=== PATIENT | female | born 1945 | race Caucasian/White ===

== ENCOUNTER 2016-08-19 11:47 | Emergency (ER) | payer OTHER, SELFPAY ==
[~2016-08-19 11:47] MED LIST: CALTRA600D PO; CLARIT10 PO; LEVOTHYROXIN100 MCG PO; MULTIPLE VIT PO; POTASSIUM PO; VITAMIN D31000 UNIT PO
[2016-08-19 12:25] LABS: BASOPHILS 0.1 %; BASOPHILS ABSOLUTE 0.01 10/3/uL (0.0-0.16); EOSINOPHILS 0.4 %; EOSINOPHILS ABSOLUTE 0.03 10/3/uL (0.0-0.53); HEMATOCRIT 38.4 % (36.0-48.0); IMMATURE GRANULOCYTES 0.1 %; IMMATURE GRANULOCYTES ABSOLUTE 0.01 10/3/uL (0.0-0.11); LYMPHOCYTES 9.7 %; LYMPHOCYTES ABSOLUTE 0.81 10/3/uL (0.67-4.30); MEAN CORPUS HGB CONC 33.9 g/dL (32.0-36.0); MEAN CORPUSCULAR HEMOGLOB 29.2 pg (26.0-34.0); MEAN PLATELET VOLUME 9.2 fL (9.2-13.0); MONOCYTES 1.8 %; MONOCYTES ABSOLUTE 0.15 10/3/uL (0.21-1.20); NEUTROPHILS 87.9 %; NEUTROPHILS ABSOLUTE 7.35 10/3/uL (2.02-8.40); PLATELET COUNT 284 10/3/uL (150-400); RBC DISTRIBUTION WIDTH 14.1 % (12.0-16.0); RED CELL COUNT 4.45 10/6/uL (4.0-5.6); WHITE BLOOD CELLS 8.4 10/3/uL (4.5-10.5)
[2016-08-19 12:26] LABS: MANUAL DIFF NO %; MEAN CORPUSCULAR VOLUME 86.3 fL (80-100)
[2016-08-19 12:38] LABS: CALCIUM, SERUM 8.2 MG/DL (8.5-10.4); CHLORIDE, SERUM 95 MMOL/L (96-112); CO2 (CARBON DIOXIDE) 31 MMOL/L (24-34); CREATININE 1.06 MG/DL (0.55-1.02); GFR AFRICAN AMERICAN 60 ML/MIN (>=60); GFR NON AFRICAN AMERICAN 52 ML/MIN (>=60); GLUCOSE, SERUM 98 MG/DL (60-99); POTASSIUM, SERUM 3.8 MMOL/L (3.5-5.3); SGPT(ALT) 18 U/L (5-65); SODIUM, SERUM 135 MMOL/L (135-148); TOTAL BILIRUBIN 0.6 MG/DL (0-1.2); TOTAL PROTEIN 6.6 G/DL (6.0-8.5)
[2016-08-19 12:41] LABS: A/G RATIO 0.6 (0.7-1.9); ALBUMIN 2.4 G/DL (3.5-5.0); ALKALINE PHOSPHATASE 88 U/L (45-117); BUN (BLOOD UREA NITROGEN) 18 MG/DL (6-23); GLOBULIN 4.2 G/DL (2.5-4.1); SGOT(AST) 23 U/L (5-40)
[2016-10-02] MEDS ORDERED: ACET500CAP PO (11:27)
== END 2016-08-19 16:05 | disposition home or self-care (01) ==
LOC: ER 11:47
PROVIDERS: Emergency Medicine
DX: E86.0 Dehydration (principal); I95.9 Hypotension, unspecified; C34.90 Malignant neoplasm of unspecified part of unspecified bronchus or lung; Z87.891 Personal history of nicotine dependence; Z88.1 Allergy status to other antibiotic agents; Z91.013 Allergy to seafood; Z79.899 Other long term (current) drug therapy
CPT/HCPCS: 80053; 85025; 93005; 99285

== ENCOUNTER 2016-09-08 21:33 | Observation (INO) | payer OTHER, SELFPAY ==
--- NOTE | ~2016-09-08 | HP ---
History And Physical [address] [place]. [address] NAME: TERESITA PARSONS : 41 STATUS : ADM Farheen PAT#: [id number] AGE: 71 ADM/REG DATE : 09/08/16 MR#: [id number] REPORT SERV DATE: 09/09/16 DICTATED BY: JUNAID SCHAEFER DATE: 09/08/16 REPORT STATUS : Draft TRANSCRIBED BY: GAYATRI DATE: 09/08/16 DATE OF ADMISSION: 09/08/2016 CHIEF COMPLAINT: A 71-year-old female presenting with recent chemotherapy treatments for lung cancer and now recurrent dehydration. HISTORY OF PRESENT ILLNESS: The patient's history was obtained through careful interview with the patient and daughter coupled with review of [facility] and [facility] medical records. The patient was diagnosed with adenocarcinoma of the lung in 2015, has undergone surgical resection of the left upper lung and now has been on chemotherapy under the care of Dr. Champagne. Last treatment was completed on the Sunday earlier this week. The plan is for the patient to undergo radiation therapy in September [address] Drew, but she has had difficulty with chemotherapy, particularly presenting with recurrent dehydration. Even this last week, she had to present with acute kidney injury and IV fluid resuscitation in the outpatient setting, but despite this, she has still felt ill and dehydrated. She describes orthostatic like symptoms, mild dizziness. She feels weak and "sits around all day." No nausea or vomiting. She claims she has a good appetite, all things considered. She has occasional diarrhea, but not too severe. She admits to an intermittent cough that is nonproductive, but no shortness of breath. She has an intermittent headache, very mild, 3/10 severity which is resolved by the time of evaluation. No chest pain. No abdominal pain. No back pain. She has had clear drainage from her sinuses. No fevers or chills. REVIEW OF SYSTEMS: Otherwise, a 14-point review of systems was obtained and was negative. PAST MEDICAL HISTORY: 1. Lung cancer as mentioned in the HPI. 2. Depression. 3. Breast cancer in 2000, status post radiation, but no chemotherapy. 4. Hypertension. 5. Hypothyroidism. 6. Abnormalities of the right parotid gland and an inguinal lymph node on PET scan with workup still pending. History And Physical [address] [place]. [address] NAME: TERESITA PARSONS : 41 STATUS : ADM Farheen PAT#: [id number] AGE: 71 ADM/REG DATE : 09/08/16 MR#: [id number] REPORT SERV DATE: 09/09/16 DICTATED BY: JUNAID SCHAEFER DATE: 09/08/16 REPORT STATUS : Draft TRANSCRIBED BY: GAYATRI DATE: 09/08/16 PAST SURGICAL HISTORY: 1. Appendectomy. 2. Breast lumpectomy. 3. VATS with left upper lung lobectomy for cancer. ALLERGIES: PENICILLIN, CIPRO, SHELLFISH, IV CONTRAST. SOCIAL HISTORY: Quit smoking 27 years ago. She used to drink one to two glasses of wine a night, but quit in February 2016. She became a in 2009. Now lives with her daughter. She also has a son who lives in the [facility] area. The patient herself lives in [place], [place]. FAMILY HISTORY: Diabetes. CURRENT MEDICATIONS: Unknown at this time, but have been requested by Pharmacy, who is working to compile list at this time. PHYSICAL EXAMINATION: VITAL SIGNS: Temperature 98.7, pulse 92, blood pressure 93/55, respiratory rate 12, O2 saturation 97% on room air. GENERAL: An ill-appearing female, but in no evidence of acute distress. HEENT: Pupils equal, round, and reactive to light. No conjunctival pallor. No scleral icterus. Nares are patent. Oropharynx is clear of obstruction. Dry mucous membranes. NECK: Trachea midline. No thyromegaly. LYMPH: No cervical lymphadenopathy. No supraclavicular lymphadenopathy. RESPIRATORY: Generally, clear to auscultation. There may be some scattered crackles on exam, but no overt rales. No focal egophony. No wheezes. The patient has a nonlabored respiratory effort. CARDIOVASCULAR: Regular rate and rhythm. No murmurs, rubs, or gallops. No current extremity edema is appreciated. ABDOMEN: Soft, nontender, nondistended. Normal bowel sounds auscultated throughout. No hepatosplenomegaly. DERMATOLOGIC: Warm and dry extremities. No pallor. No cyanosis. PSYCHIATRIC: Normal affect. She has a good mood. Alert and oriented x3. LABORATORY DATA: White blood count 5.9, hemoglobin 11, hematocrit 31, platelets 347. Sodium 131, potassium 4.9, chloride 97, bicarb 23, BUN 20, creatinine 1.54 from baseline creatinine of 0.8, glucose 94. INR 1.1. Urinalysis shows trace leukocyte esterase, 13 white blood cells. STUDIES: 1. Chest x-ray by my own evaluation shows increasing left pleural effusion compared to April 2016. 2. EKG by my own evaluation shows sinus rhythm, left atrial abnormality. ASSESSMENT AND PLAN: History And Physical [address] [address] NAME: TERESITA PARSONS : 43 STATUS : ADM Farheen PAT#: [id number] AGE: 71 ADM/REG DATE : 09/08/16 MR#: [id number] REPORT SERV DATE: 09/09/16 DICTATED BY: JUNAID SCHAEFER DATE: 09/08/16 REPORT STATUS : Draft TRANSCRIBED BY: MODL DATE: 09/08/16 1. Dehydration with acute kidney injury. Place on IV fluids. 2. Left pleural effusion. Check CT scan of the chest. 3. Lung cancer, status post surgical resection, completed chemotherapy this last week, radiation anticipated in September [address] Champagne, oncologist. 4. Anemia. KPL/MODL Junaid Schaefer M.D. / [id number] CC: MD Rodger Wiseman M.D. Benjamin R Nadeau, MD
--- NOTE | ~2016-09-08 | DS ---
Discharge Summary [facility] [address] [place]. [address] NAME: TERESITA PARSONS : 41 STATUS : DIS Farheen PAT#: [id number] AGE: 71 ADM/REG DATE : 09/08/16 MR#: [id number] REPORT SERV DATE: 09/11/16 DICTATED BY: LOUISE DE LA CRUZ DATE: 09/10/16 REPORT STATUS : Draft TRANSCRIBED BY: MODL DATE: 09/10/16 ADMISSION DATE: 09/08/2016 DISCHARGE DATE: 09/10/2016 DISCHARGE DIAGNOSES: 1. Right eye cellulitis/shingles. 2. Dehydration, acute kidney injury, improving. 3. Lung cancer, completed chemotherapy. 4. Left pleural effusion. 5. Hypomagnesium. IMAGIN. Chest x-ray on 09/08/2016, impression, no acute cardiopulmonary disease, small left effusion. Surgical clips noted in left hilum. 2. CT of the chest on 09/09/2016, impression, left upper lobectomy. Left lower lobe pulmonary nodule in the azygous space measuring 1.7 to 1.4 cm and abutting the pleura suspicious for metastatic disease. Pleural thickening and studding strongly suspicious for pleural metastatic disease with trace left pleural effusion. LABORATORY DATA: WBCs 3.2, hemoglobin 10.4, hematocrit of 30.2, platelet count of 243, sodium is 133, potassium 4.9, chloride is 100, CO2 is 24, BUN is 13, creatinine is 1.17, glucose is 90, calcium is 8.5, magnesium is 1.8. Total protein 6.5, and albumin is 2.5. CONSULTATION: Oncology Dr. Champagne. COURSE OF HOSPITAL STAY: Please refer to history and physical dictated by Dr. Gerry Drake on 09/08/2016 for complete admission details, as well as consultation note by Dr. Champagne. This patient is a 71-year-old female, who presented in [facility] Emergency Room with completing recent chemotherapy and is now experiencing dehydration. The patient does present with a history of lung cancer, under the care of Dr. Champagne, [facility]. The patient did state that she had recently completed her chemotherapy, has had decreased oral intake. The patient was admitted for IV hydration and monitoring. 1. Right eye cellulitis/shingles the patient has been evaluated by Dr. Champagne, outpatient, due to the right eye edema had been initially started on Bactrim. After further evaluation, the patient was started on Valtrex. The patient will continue medication for a total of seven days. At this time, the patient's overall right orbital area has had decrease in the edema and redness. The patient does state she has had no pain, but has noted drainage. She will continue eyedrops as well. 2. Dehydration/acute kidney injury. The patient was initially started on IV fluids. Encouraged p.o. intake. The patient has been able to tolerate p.o. for 24 hours. She is being discharged home to continue increased fluids and will follow up with Dr. Champagne outpatient. 3. Lung cancer. The patient just recently completed chemotherapy, will be followed up by Dr. Champagne. 4. Left pleural effusion is noted on imaging above. This was reviewed with patient by Dr. Dozier [address] [address] NAME: TERESITA PARSONS : 43 STATUS : DIS Farheen PAT#: [id number] AGE: 71 ADM/REG DATE : 09/08/16 MR#: [id number] REPORT SERV DATE: 09/11/16 DICTATED BY: LOUISE DE LA CRUZ DATE: 09/10/16 REPORT STATUS : Draft TRANSCRIBED BY: MODL DATE: 09/10/16 Mahi. Questions were answered. The patient may need followup PET-CT, but this will be determined outpatient. 5. Hypomagnesium. The patient's magnesium is 1.8. This will be replaced prior to discharge. Follow up labs will be obtained outpatient. DISCHARGE MEDICATIONS: 1. Caltrate 1200 mg p.o. every morning. 2. Vitamin D3, 2000 units p.o. every seven days. 3. Lexapro 10 mg p.o. every day. 4. Vigamox ophthalmic drops one drop in right eye every eight hours, a total of seven days. 5. Valtrex p.o. three times daily, a total of seven days. 6. Multivitamin daily. 7. Isadora 180 mg daily. 8. Synthroid 100 mcg p.o. at breakfast. 9. Folic acid 1 mg p.o. daily. 10.Advil mg p.o. daily. 11.Vitamin C 500 mg p.o. every morning. This discharge took less than 30 minutes. [facility]/GAYATRI Louise De La Cruz NP / [id number] CC: MD Rodger Wiseman M.D.
[2016-09-08 21:25] LABS: BASOPHILS 0.2 %; BASOPHILS ABSOLUTE 0.01 10/3/uL (0.0-0.16); EOSINOPHILS 0.2 %; EOSINOPHILS ABSOLUTE 0.01 10/3/uL (0.0-0.53); HEMOGLOBIN 10.8 g/dL (12.0-16.0); IMMATURE GRANULOCYTES 0.2 %; IMMATURE GRANULOCYTES ABSOLUTE 0.01 10/3/uL (0.0-0.11); LYMPHOCYTES ABSOLUTE 0.53 10/3/uL (0.67-4.30); MEAN CORPUS HGB CONC 35.2 g/dL (32.0-36.0); MEAN CORPUSCULAR HEMOGLOB 30.3 pg (26.0-34.0); MEAN PLATELET VOLUME 8.8 fL (9.2-13.0); MONOCYTES 2.4 %; MONOCYTES ABSOLUTE 0.14 10/3/uL (0.21-1.20); NEUTROPHILS ABSOLUTE 5.22 10/3/uL (2.02-8.40); PLATELET COUNT 347 10/3/uL (150-400); RBC DISTRIBUTION WIDTH 15.6 % (12.0-16.0); RED CELL COUNT 3.57 10/6/uL (4.0-5.6); WHITE BLOOD CELLS 5.9 10/3/uL (4.5-10.5)
[2016-09-08 21:26] LABS: HEMATOCRIT 30.7 % (36.0-48.0); MANUAL DIFF NO %
[2016-09-08 21:28] LABS: ASCORBIC ACID (UR NOT ORDER) 40 (NEG); BILIRUBIN, URINE NEGATIVE (NEG); ER URINALYSIS TAT 0 Hrs 13 Mins; KETONE, URINE NEGATIVE (NEG); LEUKOCYTE ESTERASE(NOT OR TRACE (NEG); NITRITE (URINE) NEG (NEG); WBC (NOT ORDERED) (RFLEX) 13 (0-5)
[2016-09-08 21:32] LABS: INTERNATIONAL NORMAL RATI 1.1 UNITS (-); PARTIAL THROMBO TIME 29.2 SEC (22.5-37.2); PROTIME (NOT ORD) 13.8 SEC (12.0-14.5)
[2016-09-08 21:41] LABS: BUN (BLOOD UREA NITROGEN) 20 MG/DL (6-23); CALCIUM, SERUM 8.7 MG/DL (8.5-10.4); CHEST PAIN PROFILE TAT 0 Hrs 20 Mins; CHLORIDE, SERUM 97 MMOL/L (96-112); CREATININE 1.54 MG/DL (0.55-1.02); GFR AFRICAN AMERICAN 38 ML/MIN (>=60); GFR NON AFRICAN AMERICAN 33 ML/MIN (>=60); GLUCOSE, SERUM 94 MG/DL (60-99); SODIUM, SERUM 131 MMOL/L (135-148); TROPONIN I <0.02 NG/ML (<0.05)
[2016-09-08 21:42] LABS: CO2 (CARBON DIOXIDE) 23 MMOL/L (24-34); POTASSIUM, SERUM 4.9 MMOL/L (3.5-5.3)
[2016-09-08] MEDS ORDERED: ADVIL PO (23:47)
[2016-09-08] MEDS ORDERED: ALLEGRA180 PO (23:48)
[2016-09-08] MEDS ORDERED: CALTRAT600 PO (23:48)
[2016-09-08] MEDS ORDERED: DEX4 PO (23:48)
[2016-09-08] MEDS ORDERED: LEXAPRO10 PO (23:49)
[2016-09-08] MEDS ORDERED: SYN1 PO (23:49)
[2016-09-08] MEDS ORDERED: MAXIMUM D3 PO (23:49)
[2016-09-08] MEDS ORDERED: BACTRIM DS1 TAB PO (23:50)
[2016-09-08] MEDS ORDERED: MULTIVIT/MIN PO (23:50)
[2016-09-08] MEDS ORDERED: VITC500 PO (23:50)
[2016-09-08] MEDS ORDERED: FOLIC PO (23:51)
[2016-09-09 05:18] LABS: BASOPHILS 0.6 %; BASOPHILS ABSOLUTE 0.02 10/3/uL (0.0-0.16); EOSINOPHILS 0.3 %; EOSINOPHILS ABSOLUTE 0.01 10/3/uL (0.0-0.53); IMMATURE GRANULOCYTES 0.3 %; IMMATURE GRANULOCYTES ABSOLUTE 0.01 10/3/uL (0.0-0.11); LYMPHOCYTES 11.5 %; LYMPHOCYTES ABSOLUTE 0.38 10/3/uL (0.67-4.30); MEAN CORPUS HGB CONC 34.6 g/dL (32.0-36.0); MEAN CORPUSCULAR HEMOGLOB 30.2 pg (26.0-34.0); MEAN CORPUSCULAR VOLUME 87.4 fL (80-100); MEAN PLATELET VOLUME 8.3 fL (9.2-13.0); MONOCYTES 1.5 %; MONOCYTES ABSOLUTE 0.05 10/3/uL (0.21-1.20); NEUTROPHILS 85.8 %; NEUTROPHILS ABSOLUTE 2.83 10/3/uL (2.02-8.40); RBC DISTRIBUTION WIDTH 15.7 % (12.0-16.0)
[2016-09-09 05:21] LABS: HEMATOCRIT 24.3 % (36.0-48.0); HEMOGLOBIN 8.4 g/dL (12.0-16.0); PLATELET COUNT 227 10/3/uL (150-400); RED CELL COUNT 2.78 10/6/uL (4.0-5.6); WHITE BLOOD CELLS 3.3 10/3/uL (4.5-10.5)
[2016-09-09 05:22] LABS: MANUAL DIFF NO %
[2016-09-09 05:33] LABS: INTERNATIONAL NORMAL RATI 1.1 UNITS (-); PARTIAL THROMBO TIME 29.8 SEC (22.5-37.2); PROTIME (NOT ORD) 14.3 SEC (12.0-14.5)
[2016-09-09 05:39] LABS: A/G RATIO 0.6 (0.7-1.9); ALBUMIN 1.7 G/DL (3.5-5.0); ALKALINE PHOSPHATASE 56 U/L (45-117); BUN (BLOOD UREA NITROGEN) 18 MG/DL (6-23); CALCIUM, SERUM 6.6 MG/DL (8.5-10.4); CHLORIDE, SERUM 112 MMOL/L (96-112); CO2 (CARBON DIOXIDE) 21 MMOL/L (24-34); CREATININE 1.06 MG/DL (0.55-1.02); GFR AFRICAN AMERICAN 60 ML/MIN (>=60); GFR NON AFRICAN AMERICAN 52 ML/MIN (>=60); GLOBULIN 2.9 G/DL (2.5-4.1); GLUCOSE, SERUM 71 MG/DL (60-99); POTASSIUM, SERUM 3.7 MMOL/L (3.5-5.3); SGOT(AST) 12 U/L (5-40); SGPT(ALT) 7 U/L (5-65); SODIUM, SERUM 143 MMOL/L (135-148); TOTAL BILIRUBIN 0.3 MG/DL (0-1.2); TOTAL PROTEIN 4.6 G/DL (6.0-8.5)
[2016-09-09 13:56] LABS: POTASSIUM, SERUM 4.6 MMOL/L (3.5-5.3)
[2016-09-10 05:23] LABS: BASOPHILS 0.6 %; BASOPHILS ABSOLUTE 0.02 10/3/uL (0.0-0.16); EOSINOPHILS 0.6 %; EOSINOPHILS ABSOLUTE 0.02 10/3/uL (0.0-0.53); IMMATURE GRANULOCYTES 0.3 %; IMMATURE GRANULOCYTES ABSOLUTE 0.01 10/3/uL (0.0-0.11); LYMPHOCYTES 13.1 %; LYMPHOCYTES ABSOLUTE 0.42 10/3/uL (0.67-4.30); MEAN CORPUS HGB CONC 34.4 g/dL (32.0-36.0); MEAN CORPUSCULAR HEMOGLOB 29.6 pg (26.0-34.0); MEAN PLATELET VOLUME 8.7 fL (9.2-13.0); MONOCYTES 3.1 %; NEUTROPHILS 82.3 %; NEUTROPHILS ABSOLUTE 2.64 10/3/uL (2.02-8.40); PLATELET COUNT 243 10/3/uL (150-400); RBC DISTRIBUTION WIDTH 15.7 % (12.0-16.0); WHITE BLOOD CELLS 3.2 10/3/uL (4.5-10.5)
[2016-09-10 05:26] LABS: HEMATOCRIT 30.2 % (36.0-48.0); HEMOGLOBIN 10.4 g/dL (12.0-16.0); MANUAL DIFF NO %; RED CELL COUNT 3.51 10/6/uL (4.0-5.6)
[2016-09-10 05:41] LABS: CO2 (CARBON DIOXIDE) 24 MMOL/L (24-34); CREATININE 1.17 MG/DL (0.55-1.02); GFR AFRICAN AMERICAN 54 ML/MIN (>=60); GFR NON AFRICAN AMERICAN 46 ML/MIN (>=60); POTASSIUM, SERUM 4.9 MMOL/L (3.5-5.3); SGOT(AST) 19 U/L (5-40); SGPT(ALT) 11 U/L (5-65); TOTAL BILIRUBIN 0.3 MG/DL (0-1.2)
[2016-09-10 05:43] LABS: A/G RATIO 0.6 (0.7-1.9); ALBUMIN 2.5 G/DL (3.5-5.0); ALKALINE PHOSPHATASE 76 U/L (45-117); BUN (BLOOD UREA NITROGEN) 13 MG/DL (6-23); CALCIUM, SERUM 8.5 MG/DL (8.5-10.4); CHLORIDE, SERUM 100 MMOL/L (96-112); GLUCOSE, SERUM 90 MG/DL (60-99); SODIUM, SERUM 133 MMOL/L (135-148); TOTAL PROTEIN 6.5 G/DL (6.0-8.5)
[2016-09-10] MEDS ORDERED: VIGAMOX OPH (12:26)
[2016-09-10] MEDS ORDERED: VALTREX5 PO (12:27)
[2016-10-02] MEDS ORDERED: ACET500CAP PO (11:27)
== END 2016-09-10 13:52 | disposition home or self-care (01) ==
LOC: ER 21:33 → 4EA 22:47
PROVIDERS: Emergency Medicine; Hospitalist; Internal Medicine
DX: E86.0 Dehydration (principal); N17.9 Acute kidney failure, unspecified; H00.033 Abscess of eyelid right eye, unspecified eyelid; J90 Pleural effusion, not elsewhere classified; C34.90 Malignant neoplasm of unspecified part of unspecified bronchus or lung; D64.9 Anemia, unspecified; E83.42 Hypomagnesemia; E03.9 Hypothyroidism, unspecified; F32.9 Major depressive disorder, single episode, unspecified; Z92.3 Personal history of irradiation; Z92.21 Personal history of antineoplastic chemotherapy; Z85.3 Personal history of malignant neoplasm of breast; Z90.49 Acquired absence of other specified parts of digestive tract; Z98.890 Other specified postprocedural states; Z88.0 Allergy status to penicillin; Z88.1 Allergy status to other antibiotic agents; Z91.013 Allergy to seafood; Z79.899 Other long term (current) drug therapy
CPT/HCPCS: 71010; 71250; 80048; 80053; 81001; 83735; 84132; 84443; 84484; 85025; 85610; 85730; 93005; 96372; 96374; 96376; 99285; A9270-GY; G0378

== ENCOUNTER 2016-10-03 06:33 | Day surgery (SDC) | payer OTHER ==
--- NOTE | ~2016-10-03 | OP ---
Record Of Operation [facility] [address] [place]. [address] NAME: TERESITA PARSONS : 41 STATUS : REG [facility] [place] PAT#: [id number] AGE: 71 ADM/REG DATE : 10/03/16 MR#: [id number] REPORT SERV DATE: 10/03/16 DICTATED BY: DEON LE DATE: 10/03/16 REPORT STATUS : Draft TRANSCRIBED BY: GAYATRI DATE: 10/03/16 DATE OF PROCEDURE: 10/03/2016 PREOPERATIVE DIAGNOSIS: Lung cancer. POSTOPERATIVE DIAGNOSIS: Lung cancer. OPERATION PERFORMED: Left internal jugular Port-A-Cath placement under ultrasound and fluoroscopic guidance. SURGEON: Deon Le M.D. ANESTHESIA: General. ESTIMATED BLOOD LOSS: Less than 10 mL. IV FLUIDS: Adequate. INDICATION FOR PROCEDURE: Ms Parsons is a 71-year-old, who developed lung cancer. She has a history of right breast cancer. She is brought to the operating room today for Port-A Cath placement. DESCRIPTION OF OPERATION: After appropriate sedation, the patient was prepped and draped in proper sterile fashion. Ultrasound probe was placed over the right neck. She had a patent and pliable right internal jugular vein. Right neck and right chest wall were infiltrated with local anesthesia. The left neck and the left chest wall were infiltrated with local anesthesia. Left internal jugular vein was cannulated using a 14-gauge needle under ultrasound guidance. A guidewire was fed under fluoroscopic guidance just above the right heart. A transverse incision was made at the right chest wall. Subcutaneous tissues were incised down to pectoralis fascia, and the pocket was bluntly dissected. Introducer sheath was placed over the guidewire. The catheter was then fed through the introducer sheath with tip being just above the right heart. The catheter was then tunneled subcutaneously to the port pocket, and secured to the port. The port was secured to the chest wall using 3-0 Vicryl suture. The port was flushed and aspirated, flushed and aspirated easily. The skin was closed using interrupted 3-0 Vicryl sutures. Steri-Strips and dressings were then placed. The patient was taken to the recovery room in satisfactory condition. [facility]/GAYATRI Deon Le M.D. / [id number] [facility] [place] [address] [place]. [address] NAME: TERESITA PARSONS : 41 STATUS : REG [facility] PAT#: [id number] AGE: 71 ADM/REG DATE : 10/03/16 MR#: [id number] REPORT SERV DATE: 10/03/16 DICTATED BY: DEON LE DATE: 10/03/16 REPORT STATUS : Draft TRANSCRIBED BY: MODL DATE: 10/03/16 CC: Ulysses Nash M.D.
[~2016-10-03 06:33] MED LIST changes: +ACET500CAP PO; +ADVIL PO; +ALLEGRA180 PO; +BACTRIM DS1 TAB PO; +CALTRAT600 PO; +DEX4 PO; +FOLIC PO; +LEXAPRO10 PO; +MAXIMUM D3 PO; +MULTIVIT/MIN PO; +SYN1 PO; +VALTREX5 PO; +VIGAMOX OPH; +VITC500 PO
== END 2016-10-03 16:14 | disposition home or self-care (01) ==
LOC: SDC 06:33
PROVIDERS: Specialist
PROC: 05HN33Z Insertion of Infusion Device into Left Internal Jugular Vein, Percutaneous Approach (ICD-10-PCS; principal; 2016-10-03 09:00)
DX: C34.90 Malignant neoplasm of unspecified part of unspecified bronchus or lung (principal); I10 Essential (primary) hypertension; J44.9 Chronic obstructive pulmonary disease, unspecified; Z85.3 Personal history of malignant neoplasm of breast; Z90.2 Acquired absence of lung [part of]; Z88.0 Allergy status to penicillin; Z88.1 Allergy status to other antibiotic agents; Z91.013 Allergy to seafood; Z92.21 Personal history of antineoplastic chemotherapy; Z79.899 Other long term (current) drug therapy
CPT/HCPCS: 71010; 77001; 93005; A9270-GY; C1788; J0690; J2250; J2370; J3010; J3370

== ENCOUNTER 2016-10-21 13:34 | Inpatient (IN) | payer OTHER ==
--- NOTE | ~2016-10-21 | DS ---
Discharge Summary [facility] [address] [place]. [address] NAME: TERESITA PARSONS : 41 STATUS : DIS Farheen PAT#: [id number] AGE: 71 ADM/REG DATE : 10/21/16 MR#: [id number] REPORT SERV DATE: 10/23/16 DICTATED BY: SEE SILVA DATE: 10/23/16 REPORT STATUS : Draft TRANSCRIBED BY: MODL DATE: 10/23/16 ADMISSION DATE: 10/21/2016 DISCHARGE DATE: 10/23/2016 DISCHARGE DIAGNOSES: 1. Benign positional vertigo, most likely viral labyrinthitis. 2. 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 3. Hypothyroidism. 4. Depression and anxiety. 5. Chronic anemia. 6. History of remote breast cancer with a lumpectomy in the past and radiation. CONSULTANTS DURING THIS HOSPITALIZATION: Dr. Marquess Luis of Hematology/Oncology. INVASIVE PROCEDURES DONE DURING THIS HOSPITALIZATION: None. BRIEF HISTORY OF PRESENT ILLNESS: The patient is a 71-year-old female, who presented with nausea, vomiting and dizziness, so she was admitted. For detailed history and physical exam, please see note dictated by Dr. Jenifer Hooks on 10/21/2016. HOSPITAL COURSE: After being admitted to the hospital, this patient was noted to have some dehydration, and she was given aggressive IV fluids and antiemetics. When I saw the patient, this patient had significant dizziness, where she would feel like the room was spinning every time she tried to sit up or she tried to turn her head very quickly. We initiated Antivert and Valium and within 24 hours, those symptoms have resolved. Dr. Luis saw the patient in consultation and there was a concern for brain metastatic disease, so we have ordered a CT scan of the brain with and without contrast. If these remain negative, this patient will be going home. She did have some complaints of right-sided chest pain in the upper lobe area, and we have initiated tramadol. No further testing. She will be followed up by Dr. Too Champagne in the outpatient setting. DISCHARGE DISPOSITION: Home. DISCHARGE ACTIVITY: As tolerated. DISCHARGE DIET: Low-sodium diet. DISCHARGE MEDICATIONS: Antivert 25 mg three times daily; tramadol 25 mg every six hours p.r.n. for pain, #30 with no refills given; Lexapro 10 mg once daily; levothyroxine 100 mcg once daily; multivitamins one tablet daily; calcium 600 mg daily; vitamin D3, 10,000 units daily; Advil 200 mg daily; Opdivo one dose IV every 14 days and other chemotherapy per Dr. Champagne. DISCHARGE FOLLOWUP: With Dr. Too Champagne as scheduled previously. More than 30 minutes spent planning this patient's discharge, reconciling medications, Discharge Summary [address] [place] [address] NAME: TERESITA PARSONS : 41 STATUS : DIS Farheen PAT#: [id number] AGE: 71 ADM/REG DATE : 10/21/16 MR#: [id number] REPORT SERV DATE: 10/23/16 DICTATED BY: SEE SILVA DATE: 10/23/16 REPORT STATUS : Draft TRANSCRIBED BY: GAYATRI DATE: 10/23/16 writing prescriptions, discussing hospital care and followup with the patient, and documenting this discharge. DICTATED BY: Ulysses Banerjee/GAYATRI See Silva M.D. / [id number] CC: Ulysses Banerjee M.D. Benjamin R Nadeau, MD
--- NOTE | ~2016-10-21 | HP ---
History And Physical [place] [address] [facility] [place]. [address] NAME: TERESITA PARSONS : 43 STATUS : ADM Farheen PAT#: [id number] AGE: 71 ADM/REG DATE : 10/21/16 MR#: [id number] REPORT SERV DATE: 10/21/16 DICTATED BY: JENIFER HOOKS DATE: 10/21/16 REPORT STATUS : Draft TRANSCRIBED BY: GAYATRI DATE: 10/21/16 DATE OF ADMISSION: 10/21/2016 CHIEF COMPLAINT: Nausea and vomiting and weakness. HISTORY OF PRESENT ILLNESS: Obtained from the patient as well as patient's family present at bedside and emergency room documents. Also, prior medical records were thoroughly reviewed. According to the information available, the patient is a very pleasant, 71-year-old white woman with history of hypertension, history of hypothyroidism and most significantly metastatic lung cancer, who has undergoing chemotherapy and Opdivo treatment by Hematology/Oncology Dr. Champagne. The patient stated that for the last several days, she has been extremely weak, dizzy, lightheaded with extreme nausea, occasional vomiting of gastric content. The patient had last treatment/chemotherapy this past Sunday two weeks ago and because of the above complaints, she was brought into the emergency room. The patient actually was seen and admitted in the hospital about five weeks ago with similar complaints and problems at that time, being diagnosed also with dehydration, acute kidney injury, as well as right thigh cellulitis and shingles. In the emergency room, the patient was investigated and received treatment but failed to improve and therefore, the patient was referred to the Hospitalist Service for further management and evaluation. The patient denies abdominal pain. Denies diarrhea. Denies fever or chills. She has generalized malaise and feeling weak, progressive over the last six months. No rashes. No change in her medications. No obvious bleeding such as coffee-ground emesis, black stools/melena, or hematemesis. No dysuria or urinary symptoms. The patient's family stated that "she is very sensitive to medications" and presently, the patient is sleeping in the emergency room stretcher quite profoundly after receiving Zofran and Benadryl in the emergency room. No recent reported weight loss, progressive weakness, and increasing shortness of breath, but no coughing, no sputum reported, no URI-like symptoms. No palpitations or chest pain, or pedal edema reported. PAST MEDICAL HISTORY: Significant for lung cancer, left upper lobe, treated with VATS and resection left upper lobectomy in 04/2016, presently with metastatic disease apparently to bones as documented by recent PET scan in 08/2016, undergoing presently chemotherapy and immunotherapy as per Hematology/Oncology Dr. Champagne, history of hypertension, presently on no medication, history of hypothyroidism, history of depression and anxiety, history of anemia, history of admission a month ago in 08/2016 for dehydration, acute kidney injury, history of remote breast cancer, right side lumpectomy and radiation. No chemotherapy at that time in 2000. SOCIAL HISTORY: The patient quit smoking 27 years ago. She used to drink one or two glasses of wine at bedtime with family on social occasion, quit completely in 02/2016, presently , lives with her daughter, who is the main caregiver. Denies presently alcohol abuse, denies illicit recreational drug abuse. FAMILY HISTORY: Significant for diabetes and hypertension. PAST SURGICAL HISTORY: Significant for right side breast lumpectomy, left upper lobectomy in History And Physical [address] [address] NAME: TERESITA PARSONS : 41 STATUS : ADM Farheen PAT#: [id number] AGE: 71 ADM/REG DATE : 10/21/16 MR#: [id number] REPORT SERV DATE: 10/21/16 DICTATED BY: JENIFER HOOKS DATE: 10/21/16 REPORT STATUS : Draft TRANSCRIBED BY: MODL DATE: 10/21/1604/2016 with VATS procedure by Dr. Brewer. Port-A-Cath insertion 10/03/[address] Le. Appendectomy and D and C, several colonoscopies, bronchoscopy in 03/2016, lower lip skin surgery . REVIEW OF SYSTEMS: Per H and P, otherwise negative in all review of systems. Please note, the comprehensive review of system was obtained and pertinent positives were including in the H and P. ALLERGIES: TO PENICILLIN V AND AMPICILLIN AND CIPRO AND SHELLFISH DERIVED. HOME MEDICATIONS: According to the list provided, the patient is supposed to take Caltrate and vitamin D 1200 mg p.o. before lunch, vitamin D3 10,000 units p.o. every week on Sunday, Lexapro 10 mg p.o. daily, Advil 400 mg p.o. b.i.d. p.r.n. pain, Synthroid 100 mcg p.o. q.a.m., multiple vitamin and minerals one tablet p.o. daily before lunch, Opdivo infusion every 14 days and another unknown apparently trial treatment IV every six weeks by [facility]. PHYSICAL EXAMINATION: GENERAL: Pleasant but pale, frail, very ill appearing, presently asleep, arousing with difficulty after she was medicated. VITAL SIGNS: Upon arrival in the emergency room, blood pressure 114/63, pulse 88, respiratory rate 16, temperature 98.2, and oxygen saturation 99% on room air. HEENT: Bilateral cataracts. Extraocular movements intact. Throat, mild erythema. No exudate. No signs of tenderness. Atraumatic and normocephalic. NECK: Supple. No JVD. No bruits. No thyromegaly. No lymph nodes. LUNGS: Bilateral air entry. Decreased breath sounds to left lung base with bibasilar rales. No wheezing. HEART: Positive S1, S2. Regular rate and rhythm. Positive mitral regurgitation murmur at the apex. PMI nondisplaced by palpation. ABDOMEN: Positive bowel sounds. Soft. Mild epigastric tenderness. No rebound tenderness. No guarding. No hepatosplenomegaly. EXTREMITIES: Decreased range of motion. Osteoarthritic changes. No clubbing, no cyanosis, no edema. +1 pulses bilaterally. No calf tenderness. NEUROLOGIC: Alert and oriented x3. Grossly nonfocal with mild generalized weakness. Cranial nerves 2 through 12 grossly intact. Motor strength 4/5 to 5/5 symmetrical bilateral. Deep tendon reflexes 2/2 symmetrical bilateral. BACK: Decreased range of motion. No focal localized tenderness. No CVA tenderness. SKIN: Pale, but no other bruises or lacerations. No erythema noticed. SIGNIFICANT LABORATORY DATA: Chest x-ray (personal reading) showed left pleural effusion, slightly increased from previous x-ray. EKG (personal reading) showed normal sinus rhythm at 85 beats per minute. No acute ST elevation. Urinalysis shows no signs of urinary tract infection. White cell count 8.3, hemoglobin 8.8 with a platelet count 298, bands 9%, INR 1.2, and PT 15.4. Sodium 139, potassium 4.1, chloride 105, bicarb 28, BUN 14, creatinine 0.92, glucose 101, calcium 8.8, magnesium 1.7. Troponin I less than 0.02. ASSESSMENT AND PLAN AND PROBLEM LIST: The patient is a pleasant, 71-year-old white woman History And Physical [address] [address] NAME: TERESITA PARSONS : 41 STATUS : ADM Farheen PAT#: [id number] AGE: 71 ADM/REG DATE : 10/21/16 MR#: [id number] REPORT SERV DATE: 10/21/16 DICTATED BY: JENIFER HOOKS ION DATE: 10/21/16 REPORT STATUS : Draft TRANSCRIBED BY: GAYATRI DATE: 10/21/16 with known metastatic cancer to the bones from lung cancer, undergoing chemotherapy, presented with nausea and vomiting and generalized weakness. IMPRESSION: 1. Intractable nausea and vomiting. Admitted on the Hospitalist Service, preferable on the Oncology Service. We are going to provide adequate IV hydration and symptomatic treatment for nausea and vomiting. Use PPI with Protonix 40 mg IV daily. 2. Hematologic/oncologic problem. a. Metastatic lung cancer with left pleural effusion, apparently increasing. b. Bone metastatic disease according the last PET scan done at the end of 08/2016. c. Anemia, multifactorial. d. History of remote right breast carcinoma. e. For all the above, the patient is going to be followed up by Hematology/Oncology, provide adequate pain control, monitor H and H and support with blood products as indicated. Obtain chest x-ray with decubitus imaging to assess for possible consideration for left-sided thoracentesis. Provide adequate symptomatic treatment. 3. Hypertension, essential by history. Monitor blood pressure for now. The patient is on no specific medications. Use IV hydralazine p.r.n. for increased blood pressure. 4. Hypothyroid. Continues Synthroid. 5. Depression and anxiety. Provide emotional support. Continue Lexapro. 6. Generalized weakness. Consider physical therapy and rehabilitation. 7. DNR discussion: Discussed with the patient's family. The patient to decide and communicated with primary team including her oncologist during her stay. PROGNOSIS: Moderately good for this admission rather poor in medium and long-term. Discussed with the patient's family. Questions were answered in full. Please note, also the written H and P, and written orders and instructions. RF/MODL Jenifer Hooks M.D. / [id number] CC: Ulysses Smith M.D. Benjamin R Nadeau, MD
[2016-10-21 12:46] LABS: BASOPHILS 0.5 %; BASOPHILS ABSOLUTE 0.04 10/3/uL (0.0-0.16); EOSINOPHILS 2.4 %; HEMOGLOBIN 8.8 g/dL (12.0-16.0); IMMATURE GRANULOCYTES 1.2 %; LYMPHOCYTES 7.1 %; LYMPHOCYTES ABSOLUTE 0.59 10/3/uL (0.67-4.30); MEAN CORPUS HGB CONC 32.6 g/dL (32.0-36.0); MEAN CORPUSCULAR HEMOGLOB 29.4 pg (26.0-34.0); MEAN CORPUSCULAR VOLUME 90.3 fL (80-100); MEAN PLATELET VOLUME 8.5 fL (9.2-13.0); MONOCYTES 15.8 %; MONOCYTES ABSOLUTE 1.31 10/3/uL (0.21-1.20); NEUTROPHILS ABSOLUTE 6.03 10/3/uL (2.02-8.40); RBC DISTRIBUTION WIDTH 15.9 % (12.0-16.0); RED CELL COUNT 2.99 10/6/uL (4.0-5.6)
[2016-10-21 12:51] LABS: ER CBC TAT 0 Hrs 11 Mins; MANUAL DIFF NO %; PLATELET COUNT 298 10/3/uL (150-400); WHITE BLOOD CELLS 8.3 10/3/uL (4.5-10.5)
[2016-10-21 13:03] LABS: INTERNATIONAL NORMAL RATI 1.2 UNITS (-); PROTIME (NOT ORD) 15.4 SEC (12.0-14.5)
[2016-10-21 13:04] LABS: PARTIAL THROMBO TIME 39.1 SEC (22.5-37.2)
[2016-10-21 13:05] LABS: BUN (BLOOD UREA NITROGEN) 14 MG/DL (6-23); CALCIUM, SERUM 8.8 MG/DL (8.5-10.4); CHEST PAIN PROFILE TAT 0 Hrs 25 Mins; CHLORIDE, SERUM 105 MMOL/L (96-112); CO2 (CARBON DIOXIDE) 28 MMOL/L (24-34); CREATININE 0.92 MG/DL (0.55-1.02); GFR AFRICAN AMERICAN 72 ML/MIN (>=60); GFR NON AFRICAN AMERICAN 62 ML/MIN (>=60); GLUCOSE, SERUM 101 MG/DL (60-99); POTASSIUM, SERUM 4.1 MMOL/L (3.5-5.3); SODIUM, SERUM 139 MMOL/L (135-148); TROPONIN I <0.02 NG/ML (<0.05)
[2016-10-21 13:16] LABS: BAND NEUTROPHILS 9 %; BASOPHILS 1 %; BASOPHILS ABSOLUTE (CALC) 0.08 10/3/uL (0.0-0.16); ER DIFF TAT 0 Hrs 36 Mins; IMMATURE GRANS ABSOLUTE (CALC) 0.17 10/3/uL (0.0-0.11); LYMPHOCYTES 4 %; LYMPHOCYTES ABSOLUTE (CALC) 0.33 10/3/uL (0.67-4.30); METAMYELOCYTES 2 %; MONOCYTES 9 %; MONOCYTES ABSOLUTE (CALC) 0.75 10/3/uL (0.21-1.20); NEUTROPHILS ABSOLUTE (CALC) 6.97 10/3/uL (2.02-8.40); SEGMENTED NEUTROPHIL (0) 75 %; TOTAL NUCLEATED CELLS 100
[2016-10-21 13:17] LABS: PLATELET ESTIMATE ADQ (ADEQUATE); POLYCHROMASIA 1+ (2-5/OIF) (0-1/OIF)
[2016-10-21 13:19] LABS: TARGET CELLS FEW (3-10/OIF) (0-1/OIF)
[2016-10-21 13:22] LABS: HYPOCHROMIA 1+ (3-10/OIF) (0-2/OIF)
[2016-10-21 15:12] LABS: ASCORBIC ACID (UR NOT ORDER) NEG (NEG); BILIRUBIN, URINE NEGATIVE (NEG); ER URINALYSIS TAT 0 Hrs 15 Mins; KETONE, URINE NEGATIVE (NEG); LEUKOCYTE ESTERASE(NOT OR NEG (NEG); NITRITE (URINE) NEG (NEG); WBC (NOT ORDERED) (RFLEX) 1 (0-5)
[2016-10-21] MEDS ORDERED: LEXAPRO10 PO (16:21)
[2016-10-21] MEDS ORDERED: SYN1 PO (16:21)
[2016-10-21] MEDS ORDERED: MULTIVIT/MIN PO (16:21)
[2016-10-21] MEDS ORDERED: MAXIMUM D3 PO (16:22)
[2016-10-21] MEDS ORDERED: CALTRA600D PO (16:22)
[2016-10-21] MEDS ORDERED: ADVIL PO (16:23)
[2016-10-21] MEDS ORDERED: OPDIVO IV (16:25)
[2016-10-21 19:52] LABS: PREALBUMIN 6.4 MG/DL (17.0-43.0)
[2016-10-21 20:09] LABS: PROCALCITONIN 0.05 ng/mL (<0.5)
[2016-10-21 20:45] LABS: ALBUMIN 2.3 G/DL (3.5-5.0); ALKALINE PHOSPHATASE 85 U/L (45-117); CPK 28 U/L (0-200); DIRECT BILIRUBIN 0.1 MG/DL (0.0-0.4); FREE T4 1.83 NG/DL (0.76-1.46); INDIRECT BILIRUBIN(NOT ORDER) 0.3 MG/DL (0.1-0.9); PHOSPHORUS, SERUM 3.4 MG/DL (2.5-4.5); SGOT(AST) 30 U/L (5-40); SGPT(ALT) 15 U/L (5-65); TOTAL BILIRUBIN 0.4 MG/DL (0-1.2); TOTAL PROTEIN 6.7 G/DL (6.0-8.5)
[2016-10-21 20:46] LABS: CK-MB 0.7 NG/ML; FOLATE 28.8 NG/ML (>5.2)
[2016-10-22 03:39] LABS: BASOPHILS 0.7 %; BASOPHILS ABSOLUTE 0.05 10/3/uL (0.0-0.16); EOSINOPHILS ABSOLUTE 0.34 10/3/uL (0.0-0.53); HEMATOCRIT 27.5 % (36.0-48.0); HEMOGLOBIN 9.1 g/dL (12.0-16.0); IMMATURE GRANULOCYTES 1.3 %; IMMATURE GRANULOCYTES ABSOLUTE 0.09 10/3/uL (0.0-0.11); LYMPHOCYTES 10.2 %; LYMPHOCYTES ABSOLUTE 0.69 10/3/uL (0.67-4.30); MANUAL DIFF NO %; MEAN CORPUS HGB CONC 33.1 g/dL (32.0-36.0); MEAN CORPUSCULAR HEMOGLOB 30.1 pg (26.0-34.0); MEAN CORPUSCULAR VOLUME 91.1 fL (80-100); MEAN PLATELET VOLUME 8.5 fL (9.2-13.0); MONOCYTES ABSOLUTE 1.02 10/3/uL (0.21-1.20); NEUTROPHILS 67.8 %; NEUTROPHILS ABSOLUTE 4.59 10/3/uL (2.02-8.40); PLATELET COUNT 310 10/3/uL (150-400); RBC DISTRIBUTION WIDTH 15.9 % (12.0-16.0); RED CELL COUNT 3.02 10/6/uL (4.0-5.6); WHITE BLOOD CELLS 6.8 10/3/uL (4.5-10.5)
[2016-10-22 03:55] LABS: ALBUMIN 2.1 G/DL (3.5-5.0); CALCIUM, SERUM 8.6 MG/DL (8.5-10.4); CHLORIDE, SERUM 109 MMOL/L (96-112); CO2 (CARBON DIOXIDE) 27 MMOL/L (24-34); CPK 24 U/L (0-200); CREATININE 0.89 MG/DL (0.55-1.02); GFR AFRICAN AMERICAN 75 ML/MIN (>=60); GFR NON AFRICAN AMERICAN 64 ML/MIN (>=60); GLUCOSE, SERUM 103 MG/DL (60-99); PHOSPHORUS, SERUM 3.5 MG/DL (2.5-4.5); POTASSIUM, SERUM 4.2 MMOL/L (3.5-5.3); SODIUM, SERUM 143 MMOL/L (135-148); TROPONIN I <0.02 NG/ML (<0.05)
[2016-10-22 03:57] LABS: BUN (BLOOD UREA NITROGEN) 10 MG/DL (6-23); CK-MB 0.7 NG/ML
[2016-10-23 07:58] LABS: BASOPHILS 0.5 %; BASOPHILS ABSOLUTE 0.04 10/3/uL (0.0-0.16); EOSINOPHILS 3.2 %; EOSINOPHILS ABSOLUTE 0.25 10/3/uL (0.0-0.53); HEMATOCRIT 27.8 % (36.0-48.0); IMMATURE GRANULOCYTES ABSOLUTE 0.08 10/3/uL (0.0-0.11); LYMPHOCYTES 14.4 %; LYMPHOCYTES ABSOLUTE 1.14 10/3/uL (0.67-4.30); MANUAL DIFF NO %; MEAN CORPUS HGB CONC 32.4 g/dL (32.0-36.0); MEAN CORPUSCULAR HEMOGLOB 29.2 pg (26.0-34.0); MEAN CORPUSCULAR VOLUME 90.3 fL (80-100); MEAN PLATELET VOLUME 8.6 fL (9.2-13.0); MONOCYTES 11.6 %; MONOCYTES ABSOLUTE 0.92 10/3/uL (0.21-1.20); NEUTROPHILS 69.3 %; NEUTROPHILS ABSOLUTE 5.49 10/3/uL (2.02-8.40); PLATELET COUNT 281 10/3/uL (150-400); RBC DISTRIBUTION WIDTH 16.1 % (12.0-16.0); RED CELL COUNT 3.08 10/6/uL (4.0-5.6); WHITE BLOOD CELLS 7.9 10/3/uL (4.5-10.5)
[2016-10-23 08:05] LABS: CALCIUM, SERUM 8.3 MG/DL (8.5-10.4); CHLORIDE, SERUM 107 MMOL/L (96-112); CO2 (CARBON DIOXIDE) 27 MMOL/L (24-34); CREATININE 0.97 MG/DL (0.55-1.02); GFR AFRICAN AMERICAN 67 ML/MIN (>=60); GFR NON AFRICAN AMERICAN 58 ML/MIN (>=60); GLUCOSE, SERUM 105 MG/DL (60-99); PHOSPHORUS, SERUM 2.7 MG/DL (2.5-4.5); POTASSIUM, SERUM 3.9 MMOL/L (3.5-5.3); SODIUM, SERUM 141 MMOL/L (135-148)
[2016-10-23 08:07] LABS: BUN (BLOOD UREA NITROGEN) 6 MG/DL (6-23)
[2016-10-23] MEDS ORDERED: ULTRAM50 PO (11:47)
[2016-10-23] MEDS ORDERED: MCZ25 PO (11:48)
== END 2016-10-23 13:25 | disposition home or self-care (01) | DRG 149 ==
LOC: ER 13:34 → CDU1 17:10 → 5SO 10-22 14:01
PROVIDERS: Internal Medicine; Nurse Practitioner
DX: H81.13 Benign paroxysmal vertigo, bilateral (principal); J90 Pleural effusion, not elsewhere classified; C79.51 Secondary malignant neoplasm of bone; E86.0 Dehydration; H83.03 Labyrinthitis, bilateral; I10 Essential (primary) hypertension; E03.9 Hypothyroidism, unspecified; F32.9 Major depressive disorder, single episode, unspecified; F41.9 Anxiety disorder, unspecified; Z92.21 Personal history of antineoplastic chemotherapy; Z85.118 Personal history of other malignant neoplasm of bronchus and lung; Z90.2 Acquired absence of lung [part of]; Z87.891 Personal history of nicotine dependence; Z82.3 Family history of stroke; Z82.49 Family history of ischemic heart disease and other diseases of the circulatory system; Z88.0 Allergy status to penicillin; Z88.1 Allergy status to other antibiotic agents; Z91.013 Allergy to seafood; Z79.899 Other long term (current) drug therapy; Z85.3 Personal history of malignant neoplasm of breast
CPT/HCPCS: 70470; 71010; 71035-50; 80048; 80069; 80076; 81001; 82550; 82553; 82607; 82746; 83735; 83880; 84100; 84134; 84145; 84439; 84443; 84484; 85025; 85610; 85730; 93005; 96374; 96375; 99285; A9270-GY; C9113; J1200; J2405; Q9967